=== PATIENT | female | born 2000 | race Caucasian/White ===

== ENCOUNTER 2019-02-02 20:39 | Emergency (ER) | payer OTHER ==
[~2019-02-02] VITALS: Ht 162.6 cm; Wt 57.2 kg
[2019-02-02] MEDS ORDERED: KETO10TA2 PO (23:49)
[2019-02-02] MEDS ORDERED: MEDROLPACK PO (23:49)
== END 2019-02-03 00:04 | disposition home or self-care (01) ==
LOC: ER 20:39
DX: G51.0 Bell's palsy (principal)

== ENCOUNTER 2019-12-05 09:08 | Emergency (ER) | payer OTHER ==
[~2019-12-05] VITALS: Ht 162.6 cm; Wt 57.2 kg
[~2019-12-05 09:08] MED LIST: KETO10TA2 PO; MEDROLPACK PO
[2019-12-05] MEDS ORDERED: KETO10TA2 PO (15:04)
[2019-12-05] MEDS ORDERED: TAMS0.4C PO (15:04)
== END 2019-12-05 15:51 | disposition home or self-care (01) ==
LOC: ER 09:08
DX: N20.0 Calculus of kidney (principal); Z03.818 Encounter for observation for suspected exposure to other biological agents ruled out; R10.11 Right upper quadrant pain

== ENCOUNTER 2020-11-01 15:49 | Outpatient (CLI) | payer OTHER ==
[~2020-11-01 15:49] MED LIST changes: +TAMS0.4C PO
== END 2020-11-01 16:36 | disposition home or self-care (01) ==
LOC: PRENATAL 15:49
PROVIDERS: ATTEND Obstetrics & Gynecology Maternal & Fetal Medicine
DX: O35.0XX1 Maternal care for (suspected) central nervous system malformation in fetus, fetus 1 (principal); O35.3XX1 Maternal care for (suspected) damage to fetus from viral disease in mother, fetus 1; O98.512 Other viral diseases complicating pregnancy, second trimester; Z36.89 Encounter for other specified antenatal screening; Z3A.20 20 weeks gestation of pregnancy